=== PATIENT | male | born 1955 | race Caucasian/White ===

== ENCOUNTER 2016-08-08 13:38 | Observation (INO) | payer MEDICARE ==
[~2016-08-08] VITALS: Ht 182.9 cm; Wt 95.5 kg
[~2016-08-08 13:38] MED LIST: ALLER-CHLOR4 MG PO; ATIVAN1 MG PO; BENADRYL50 MG PO; DILANTIN100 MG PO; DOLOPHINE HCL10 MG PO; HYDROCODONE-APA1 TAB PO; MAXALT MLT10 MG/TAB PO; NEURONTIN600 MG PO; PHENOBARBITAL32.4 MG PO; PHENYTOIN100 MG/4 M PO; PROZAC40 MG PO; SOMA350 MG PO
[2016-08-08 19:08] LABS: BASOPHILS 0.2 % (0-2); EOSINOPHILS 2.4 % (0-7); HEMATOCRIT 42.3 % (42.0-54.0); HEMOGLOBIN 14.2 g/dL (13.5-17.5); IMMATURE GRANULOCYTES 0.2 % (0-5); LYMPHOCYTES 37.1 % (15-50); MCH 33.6 pg (26.0-34.0); MCHC 33.6 g/dL (31.0-37.0); MEAN PLATELET VOLUME 9.5 fL (7.4-10.4); MONOCYTES 7.1 % (2-11); PLATELET COUNT 222 10x3/uL (130-400); RBC 4.23 10x6/uL (4.20-6.10); RDW 13.9 % (11.5-14.5); WBC 8.3 10x3/uL (4.8-10.8)
[2016-08-08 19:18] LABS: APTT 30.3 SECONDS (22.8-39.4); INR 0.91 (0.85-1.17); PROTIME 12.1 SECONDS (11.6-15.0)
[2016-08-08 19:31] LABS: ALBUMIN 3.4 g/dL (3.4-5.0); ALKALINE PHOSPHATASE 108 U/L (46-116); ALT (SGPT) 26 U/L (10-68); CALC OSMOLALITY 276 mosm/kg (275-300); CALCIUM 8.7 mg/dL (8.5-10.1); CARBON DIOXIDE 30.5 mmol/L (21.0-32.0); CHLORIDE - SERUM 104 mmol/L (98-107); GLUCOSE 86 mg/dL (74-106); POTASSIUM - SERUM 4.3 mmol/L (3.5-5.1); PROTEIN - SERUM 6.6 g/dL (6.4-8.2); SODIUM 140 mmol/L (136-145); UREA NITROGEN 11 mg/dL (7-18); eGFR NON AFRICAN AMERICAN 81 mL/min (90-120)
--- NOTE | 2016-08-09 01:40 | NUR ---
CALLED CONSULT TO DR. MOSER
[2016-08-09 02:01] VITALS: BP 128/73; Ht 182.9 cm; Wt 95.5 kg
--- NOTE | 2016-08-09 02:50 | NUR ---
PATIENT RECEIVED TO ROOM FROM ER VIA WHEELCHAIR WITH HOSPITAL STAFF. AAOX4. RR EVEN AND UNLABORED. 0 S/S OF DISTRESS. IV TO RIGHT AC PATENT WITH NO REDNESS OR SWELLING. PATIENT STATED PAIN IS A 9/10 IN BACK AND NECK. NORCO GIVEN PER TELEPHONE ORDER FROM LAVERN LUCAS. ADMIT COMPLETE. ORIENTED PATIENT TO ROOM AND CALL LIGHT. NO OTHER NEEDS AT THIS TIME.
[2016-08-09 04:00] VITALS: BP 115/78
--- NOTE | 2016-08-09 05:48 | NUR ---
NORCO GIVEN FOR PAIN OF AN 8.
[2016-08-09 08:48] VITALS: BP 164/68
--- NOTE | 2016-08-09 12:00 | NUR ---
FLUSHED IV, IT PUFFED UP. D/C IV WITH CATHETER INTACT.
[2016-08-09 12:07] LABS: BASOPHILS 0.3 % (0-2); EOSINOPHILS 2.7 % (0-7); HEMATOCRIT 39.9 % (42.0-54.0); HEMOGLOBIN 13.4 g/dL (13.5-17.5); IMMATURE GRANULOCYTES 0.2 % (0-5); LYMPHOCYTES 37.1 % (15-50); MCH 33.3 pg (26.0-34.0); MCHC 33.6 g/dL (31.0-37.0); MCV 99.3 fL (80.0-100.0); MEAN PLATELET VOLUME 9.9 fL (7.4-10.4); MONOCYTES 6.3 % (2-11); NEUTROPHILS 53.4 % (40-80); PLATELET COUNT 226 10x3/uL (130-400); RBC 4.02 10x6/uL (4.20-6.10); RDW 13.9 % (11.5-14.5)
[2016-08-09 12:23] LABS: WBC 6.2 10x3/uL (4.8-10.8)
[2016-08-09 12:28] LABS: ANION GAP 9.7 mmol/L (8-16); BILIRUBIN - TOTAL 0.17 mg/dL (0.2-1.3); CALCIUM 8.3 mg/dL (8.5-10.1); CARBON DIOXIDE 29.2 mmol/L (21.0-32.0); CREATININE - SERUM 1.1 mg/dL (0.6-1.3); POTASSIUM - SERUM 3.9 mmol/L (3.5-5.1); PROTEIN - SERUM 6.3 g/dL (6.4-8.2)
[2016-08-09 12:35] VITALS: BP 101/60
--- NOTE | 2016-08-09 15:01 | NUR ---
IV ACCESS-20 GAUGE INSERTTED IN RIGHT FOREARM FOR ACCESS. CHRIS BOWERS RN
[2016-08-09 17:02] VITALS: BP 108/73; BP 108/773
--- NOTE | 2016-08-09 18:15 | NUR ---
D/C IV WITH CATHETER INTACT. DISCHARGE INSTRUCTIONS COMPLETED WITH PATIENT. PATIENT AND DENY NEEDS.
--- NOTE | 2016-08-09 18:30 | NUR ---
PATIENT LEFT VIA WHEELCHAIR.
== END 2016-08-09 18:37 | disposition home or self-care (01) ==
LOC: D.ER 13:38 → OBSVTIME 23:09 → D.MS 23:09
PROVIDERS: Emergency Medicine; ADMIT Family Medicine
DX: F10.239 Alcohol dependence with withdrawal, unspecified (principal); T51.0X1A Toxic effect of ethanol, accidental (unintentional), initial encounter; F12.10 Cannabis abuse, uncomplicated; F17.203 Nicotine dependence unspecified, with withdrawal; G40.909 Epilepsy, unspecified, not intractable, without status epilepticus; J44.9 Chronic obstructive pulmonary disease, unspecified; K21.9 Gastro-esophageal reflux disease without esophagitis; F41.9 Anxiety disorder, unspecified; F32.9 Major depressive disorder, single episode, unspecified; I25.10 Atherosclerotic heart disease of native coronary artery without angina pectoris; Z95.5 Presence of coronary angioplasty implant and graft

== ENCOUNTER 2017-08-21 12:13 | Emergency (ER) | payer MEDICARE ==
[~2017-08-21] VITALS: Ht 182.9 cm; Wt 90.9 kg
[2017-08-21 12:18] VITALS: Ht 182.9 cm; Wt 90.9 kg
[2017-08-21 12:46] LABS: BASOPHILS 0.2 % (0-2); EOSINOPHILS 1.2 % (0-7); HEMATOCRIT 41.4 % (42.0-54.0); HEMOGLOBIN 14.2 g/dL (13.5-17.5); IMMATURE GRANULOCYTES 0.1 % (0-5); MCH 33.1 pg (26.0-34.0); MCHC 34.3 g/dL (31.0-37.0); MCV 96.5 fL (80.0-100.0); MEAN PLATELET VOLUME 9.2 fL (7.4-10.4); MONOCYTES 8.3 % (2-11); NEUTROPHILS 57.2 % (40-80); PLATELET COUNT 263 10x3/uL (130-400); RBC 4.29 10x6/uL (4.20-6.10); RDW 14.1 % (11.5-14.5); WBC 8.6 10x3/uL (4.8-10.8)
[2017-08-21 12:58] LABS: INR 0.87 (0.85-1.17); PROTIME 11.4 SECONDS (11.6-15.0)
[2017-08-21 13:05] LABS: ALBUMIN 3.3 g/dL (3.4-5.0); ALKALINE PHOSPHATASE 138 U/L (46-116); ALT (SGPT) 25 U/L (10-68); AMYLASE - SERUM 27 U/L (25-115); CALC OSMOLALITY 278 mosm/kg (275-300); CALCIUM 8.8 mg/dL (8.5-10.1); CARBON DIOXIDE 24.9 mmol/L (21.0-32.0); CHLORIDE - SERUM 105 mmol/L (98-107); CREATININE - SERUM 0.9 mg/dL (0.6-1.3); GLUCOSE 86 mg/dL (74-106); LIPASE 162 U/L (73-393); POTASSIUM - SERUM 4.3 mmol/L (3.5-5.1); PROTEIN - SERUM 6.9 g/dL (6.4-8.2); SODIUM 140 mmol/L (136-145); UREA NITROGEN 14 mg/dL (7-18); eGFR NON AFRICAN AMERICAN > 90 mL/min (90-120)
[2017-08-21 14:51] LABS: APPEARANCE CLEAR (CLEAR); BILIRUBIN NEGATIVE (NEGATIVE); COLOR YELLOW (YELLOW); GLUCOSE NEGATIVE (NEGATIVE); KETONE NEGATIVE (NEGATIVE); NITRITE NEGATIVE (NEGATIVE); PROTEIN NEGATIVE (NEGATIVE); SPECIFIC GRAVITY 1.015 (1.005-1.020); UROBILINOGEN NORMAL (NORMAL)
[2017-08-21 14:53] LABS: RED CELLS - URINE 0-5 /hpf (0-5); WHITE CELLS - URINE OCC /hpf (0-5)
[2017-08-21 14:55] LABS: BACTERIA FEW /hpf (NONE SEEN)
[2017-08-21] MEDS ORDERED: CIPRO500 MG PO (18:44)
[2017-08-21] MEDS ORDERED: FLAGYL500 MG PO (18:44)
[2017-08-21 19:12] VITALS: BP 137/84
== END 2017-08-21 19:10 | disposition home or self-care (01) ==
LOC: D.ER 12:13
PROVIDERS: Family Medicine
DX: K57.90 Diverticulosis of intestine, part unspecified, without perforation or abscess without bleeding (principal); J44.9 Chronic obstructive pulmonary disease, unspecified; K21.9 Gastro-esophageal reflux disease without esophagitis; F17.200 Nicotine dependence, unspecified, uncomplicated

== ENCOUNTER 2018-07-31 12:16 | Inpatient (IN) | payer MEDICARE ==
[2018-07-31] VITALS (8 sets, daily range): BP systolic 109–138; BP diastolic 59–88; BMI 27.5
[~2018-07-31] VITALS: Ht 182.9 cm; Wt 92.5 kg
--- NOTE | ~2018-07-31 | ST ---
PATIENT:SHARON COPELAND MEDICAL RECORD: [id number] SEX: M LOCATION:D. D.211 ORDER #: ADMISSION DATE: 07/31/18 AGE OF PATIENT: 62 REFERRING PHYSICIAN: INTERPRETING PHYSICIAN: BHASKAR CANDELARIO MD DATE OF SERVICE: 08/03/2018 Lexiscan Nuclear Stress Test INDICATION: Chest pain. He was exercised on standard Lexiscan protocol with 30 mCi of sestamibi injected at peak stress and 12 mCi was used previously for rest images. FINDINGS: Gated SPECT reveals preserved ejection fraction at 66% with good wall motion and thickening and brightening throughout all segments. SPECT Imaging: Cardiolite was used as myocardial fusion agent. There is homogeneous uptake throughout all segments at rest and stress with no evidence of inducible ischemia or previous infarction. OVERALL IMPRESSION: 1. This is a normal nuclear stress test with no evidence of inducible ischemia or previous infarction. 2. Gated SPECT reveals a preserved ejection fraction at 66%. In this patient with ongoing symptomatology, the current scan does not suggest the presence of hemodynamically significant coronary artery disease. Evaluate noncardiac etiology of chest pain. TRANSINT:[id number] Voice Confirmation ID: [id number] DOCUMENT ID: [id number] BHASKAR CANDELARIO MD CC: [id number] DICTATION DATE: 08/03/18 1301 LEAD SHAREPOINT DEVELOPER: 08/04/18 0144 ADM IN [place] [place] [address]
[~2018-07-31 12:16] MED LIST changes: +CIPRO500 MG PO; +FLAGYL500 MG PO
[2018-07-31] MEDS ORDERED: ANORO ELLIPTA1 EACH INH (12:28)
[2018-07-31] MEDS ORDERED: ZANAFLEX4 MG PO (12:29)
[2018-07-31] MEDS ORDERED: ALBUTEROL SULF8.5 GM INH (12:29)
--- NOTE | 2018-07-31 12:45 | NUR ---
PT STATES THAT PAIN WAS 10/10 PRIOR TO FIRST SL NITRO, THEN DECREASED TO 9/10 PRIOR TO SECOND SL NITRO.
[2018-07-31 12:49] LABS: BASOPHILS 0.2 % (0-2); EOSINOPHILS 1.2 % (0-7); HEMATOCRIT 41.9 % (42.0-54.0); HEMOGLOBIN 14.7 g/dL (13.5-17.5); IMMATURE GRANULOCYTES 0.2 % (0-5); LYMPHOCYTES 29.3 % (15-50); MCH 33.6 pg (26.0-34.0); MCHC 35.1 g/dL (31.0-37.0); MCV 95.9 fL (80.0-100.0); MEAN PLATELET VOLUME 9.6 fL (7.4-10.4); MONOCYTES 6.7 % (2-11); NEUTROPHILS 62.4 % (40-80); PLATELET COUNT 266 10x3/uL (130-400); RBC 4.37 10x6/uL (4.20-6.10); RDW 14.1 % (11.5-14.5); WBC 8.4 10x3/uL (4.8-10.8)
--- NOTE | 2018-07-31 12:50 | NUR ---
PT STATES PAIN IS CURRENTLY 7/10 FOLLOWING SECOND PRN NITRO, NOT ADMINISTERING THIRD PRN NITRO D/T DIASTOLIC HYPOTENSION.
[2018-07-31 13:01] LABS: ALBUMIN 3.5 g/dL (3.4-5.0); ALKALINE PHOSPHATASE 116 U/L (46-116); ALT (SGPT) 23 U/L (10-68); BILIRUBIN - TOTAL 0.31 mg/dL (0.2-1.3); CALC OSMOLALITY 277 mosm/kg (275-300); CALCIUM 8.9 mg/dL (8.5-10.1); CARBON DIOXIDE 24.6 mmol/L (21.0-32.0); CHLORIDE - SERUM 104 mmol/L (98-107); CREATININE - SERUM 0.9 mg/dL (0.6-1.3); GLUCOSE 90 mg/dL (74-106); PROTEIN - SERUM 7.2 g/dL (6.4-8.2); SODIUM 139 mmol/L (136-145); UREA NITROGEN 13 mg/dL (7-18); eGFR NON AFRICAN AMERICAN > 90 mL/min (90-120)
[2018-07-31 13:03] LABS: APTT 31.3 SECONDS (22.8-39.4); INR 0.94 (0.85-1.17); PROTIME 12.1 SECONDS (11.6-15.0)
[2018-07-31 13:13] LABS: CKMB 0.7 U/L (0.0-3.6); CREATINE KINASE 60 UL (21-232); TROPONIN-I < 0.017 ng/mL (0.000-0.060)
--- NOTE | 2018-07-31 13:42 | NUR ---
UPON ARRIVAL PT PRESENTED WITH LABORED BREATHING. 02 APPLIED, DUE TO C/O SOB. PT CURRENTLY SITTING IN HIGH-ARREDONDO'S, NO SIGNS OF DISTRESS. RESPIRATIONS EVEN AND NONLABORED AT RATE OF 20 PER MINUTE. FAMILY AT THE BEDSIDE AND CALL LIGHT IN REACH. WILL CONTINUE TO MONITOR.
[2018-07-31] MEDS ORDERED: IBUPROFEN800 MG PO (15:30)
--- NOTE | 2018-07-31 15:30 | NUR ---
RECIVED FROM ER PER WC TO ROOM 2119. ADMIT ASSESSMENT PER RN
[2018-07-31 15:32] LABS: CKMB 0.7 U/L (0.0-3.6); CREATINE KINASE 64 UL (21-232)
[2018-07-31] MEDS ORDERED: PHENOBARBITAL30 MG PO (15:32)
[2018-07-31 15:34] LABS: TROPONIN-I < 0.017 ng/mL (0.000-0.060)
--- NOTE | 2018-07-31 16:59 | NUR ---
WITHOUT CHANGES OR DISTRESS NOTED AT THIS TIME. DENIES NEEDS.
[2018-07-31] MEDS ORDERED: DILANTIN100 MG PO (17:52)
--- NOTE | 2018-07-31 20:09 | NUR ---
RESUMING PATIENT CARE. PATIENT IS ALERT AND ORIENTED, RESTING COMFORTABLY IN BED. RESPIRATIONS ARE EVEN AND UNLABORED. NO S/S OF DISTRESS. NO C/O PAIN. NEEDS MET. CALL LIGHT WITHIN REACH. WILL CPOC.
[2018-07-31 21:36] LABS: CKMB 0.4 U/L (0.0-3.6); CREATINE KINASE 44 UL (21-232); TROPONIN-I < 0.017 ng/mL (0.000-0.060)
[2018-08-01 00:30] VITALS: BP 106/48
[2018-08-01 02:43] LABS: BASOPHILS 0.2 % (0-2); EOSINOPHILS 2.3 % (0-7); HEMATOCRIT 36.8 % (42.0-54.0); HEMOGLOBIN 12.6 g/dL (13.5-17.5); IMMATURE GRANULOCYTES 0.1 % (0-5); LYMPHOCYTES 27.6 % (15-50); MCH 33.1 pg (26.0-34.0); MCHC 34.2 g/dL (31.0-37.0); MCV 96.6 fL (80.0-100.0); NEUTROPHILS 62.8 % (40-80); RBC 3.81 10x6/uL (4.20-6.10); RDW 14.3 % (11.5-14.5); WBC 8.1 10x3/uL (4.8-10.8)
[2018-08-01 02:50] LABS: PLATELET COUNT 207 10x3/uL (130-400)
[2018-08-01 03:25] LABS: ALBUMIN 2.8 g/dL (3.4-5.0); ALKALINE PHOSPHATASE 95 U/L (46-116); ALT (SGPT) 21 U/L (10-68); BILIRUBIN - TOTAL 0.21 mg/dL (0.2-1.3); CALC OSMOLALITY 280 mosm/kg (275-300); CARBON DIOXIDE 27.1 mmol/L (21.0-32.0); CHLORIDE - SERUM 106 mmol/L (98-107); CKMB 0.5 U/L (0.0-3.6); CREATINE KINASE 38 UL (21-232); GLUCOSE 100 mg/dL (74-106); PROTEIN - SERUM 5.9 g/dL (6.4-8.2); SODIUM 140 mmol/L (136-145); TROPONIN-I < 0.017 ng/mL (0.000-0.060); eGFR NON AFRICAN AMERICAN 81 mL/min (90-120)
[2018-08-01 03:31] LABS: UREA NITROGEN 17 mg/dL (7-18)
[2018-08-01 04:30] VITALS: BP 112/58
--- NOTE | 2018-08-01 07:19 | NUR ---
PT UP AD SEPIDEH TO GET COFFEE. A/O X4, RESP EVEN AND NONLABORED ON RA. PT RATES PAIN LEVEL OF 5/10. LT FA IV SL, MONITOR SHOWING SR WITH RATE OF 66. PT DENIES ANY NEEDS AT THIS TIME. CALL LIGHT IN REACH, NAD NOTED, WILL CONTINUE PLAN OF CARE.
[2018-08-01 07:56] VITALS: BP 128/67
--- NOTE | 2018-08-01 11:19 | NUR ---
INFORMED PT SCARLETT WE NEED A URINE SAMPLE, PT ALREADY AWARE, COLLECTION CUP IN ROOM.
[2018-08-01 11:57] VITALS: BP 119/54
--- NOTE | 2018-08-01 13:42 | NUR ---
PT AT NURSES STATION GETTING COFFEE. C/O SOB AND CHEST PAIN, REYNALDO RN WALKED PT BACK TO ROOM. VITAL SIGNS FOLLOW BP OF 135/65, HR 76, RESP 22, O2 98% ON 2L. 1350- 1 NITRO GIVEN AT THIS TIME.
[2018-08-01 14:07] LABS: UDS - AMPHET NEGATIVE QUAL (NEGATIVE); UDS - BARB POSITIVE QUAL (NEGATIVE); UDS - BENZO NEGATIVE QUAL (NEGATIVE); UDS - COCAINE NEGATIVE QUAL (NEGATIVE); UDS - OPIATE NEGATIVE QUAL (NEGATIVE); UDS - PCP NEGATIVE QUAL (NEGATIVE); UDS - THC NEGATIVE QUAL (NEGATIVE)
--- NOTE | 2018-08-01 14:25 | NUR ---
PT STILL C/O OF CHEST PAIN 8/10 PAIN LEVEL EVEN AFTER 3 DOSES OF NITRO. GAVE NORCO AT THIS TIME. PT DENIES ANY OTHER NEEDS AT THIS TIME. CALL LIGHT IN REACH, NAD NOTED, WILL CONTINUE TO MONITOR.
[2018-08-01 16:33] VITALS: BP 120/51
--- NOTE | 2018-08-01 18:35 | NUR ---
GAVE NORCO FOR PAIN LEVEL OF 7/10. PT DENIES ANY OTHER NEEDS AT THIS TIME. CALL LIGHT IN REACH, NAD NOTED.
--- NOTE | 2018-08-01 19:26 | NUR ---
RESUMING PATIENT CARE. PATIENT IS ALERT AND ORIENTED, WALKING AROUND ROOM TALKING ON PHONE. PATIENT RESPIRATIONS ARE EVEN AND UNLABORED. NO S/S OF DISTRESS. NO C/O PAIN. CALL LIGHT WITHIN REACH. WILL CPOC
[2018-08-01 20:00] VITALS: BP 116/56
--- NOTE | 2018-08-01 23:00 | NUR ---
PATIENT RESTING COMDFORTABLY IN BED. RESPIRATIONS ARE EVEN AND UNLABORED. NO S/S OF DISTRESS. NO C/O PAIN. DENIES NEEDS AT THIS TIME. CALL LIGHT WITHIN REACH. WILL CPOC.
[2018-08-02] VITALS: BP 126/63
[2018-08-02 04:00] VITALS: BP 122/60
--- NOTE | 2018-08-02 04:19 | NUR ---
PATIENT UP WALKING AROUND. THERMOSTATIC CONTROLS SUPERVISOR INFORMED ME THAT THE PATIENT HAD COVERTED TO CONTROLLED AFIB HR 85. PATIENT BACK IN FROM SITTING ON BED. WILL DO EKG AND NOTIFY .
--- NOTE | 2018-08-02 04:56 | NUR ---
INFORMED BY POST ADOPTION COORDINATOR THAT PATIENT HAD CONVERTED TO CONTROLLED AFIB HR 85. PATIENT IS WALKING AROUND IN THE HALLWAY. PATIENT HAS NO C/O CHEST PAIN OR PRESSURE.
[2018-08-02 08:38] VITALS: BP 121/68
--- NOTE | 2018-08-02 10:50 | NUR ---
UP AMBULATING HALLWAY WITH FAMILY. GAIT STEADY.
[2018-08-02 11:39] VITALS: BP 116/62
--- NOTE | 2018-08-02 14:39 | NUR ---
TELEMETRY CAF. RESTS IN BED WITH EYES CLOSED. CALL LIGHT IN REACH. WILL CONT. PLAN OF CARE.
[2018-08-02 15:55] VITALS: BP 118/78
--- NOTE | 2018-08-02 19:20 | NUR ---
TILER'S ASSISTANT REPORTED THAT PATIENT HAD A 6 SECOND PAUSE. PATIENT HAD A SECOND PAUSE OF 7.4. PATIENT BP 113/72. HR 84. O2 98 ON 2L. PATIENT C/O CHEST PRESSURE PATIENT ASSESSED AND EKG OBTAINED EKG PATIENT REMAINS IN AFIB. STAT PAGE TO DR. CANDELARIO. ORDERS GIVEN TO DISCONTINUE SOTALOL AND TO CALL AGAIN IF PATIENT BECOMES SYMPTOMATIC.
[2018-08-02 20:00] VITALS: BP 113/72
--- NOTE | 2018-08-02 21:07 | NUR ---
PT UP WALKING AROUND WITH SPOUSE. EDUCATED PT TO REST DUE TO PAUSES EARLIER IN SHIFT, AND ACCURATE MONITORING. ASKED PT TO STAY ON UNIT TO KEEP ACCURATE READING OF TELEMETRY. PT VERBALIZED UNDERSTANDING. WILL CPOC
--- NOTE | 2018-08-02 21:11 | NUR ---
PT BACK INTO ROOM AFTER ONE LAP AROUND UNIT. NO S/S OF DISTRESS. PT IS 69 SR ON THE MONITOR. WILL CPOC
--- NOTE | 2018-08-02 21:15 | NUR ---
PT THAN CAME OUT TO WHEEL CHAIR WITH SPOUSE AND HAD SPOUSE PUSH HIM OUT TO ER TO SMOKE A CIGG. TOLD PT THE MONITOR DOES NOT READ OUTSIDE AND EDUCATED IN RISK ASSOCIATED WITH HEART AND HEART PAUSES. PT VERBALIZED UNDERSTANDING, BUT STILL WENT OUTSIDE WITH . WILL CPOC
[2018-08-03 00:30] VITALS: BP 127/67
[2018-08-03 04:59] LABS: BASOPHILS 0.3 % (0-2); EOSINOPHILS 3.8 % (0-7); HEMATOCRIT 36.9 % (42.0-54.0); HEMOGLOBIN 12.3 g/dL (13.5-17.5); IMMATURE GRANULOCYTES 0.3 % (0-5); LYMPHOCYTES 28.2 % (15-50); MCH 33.1 pg (26.0-34.0); MCHC 33.3 g/dL (31.0-37.0); MCV 99.2 fL (80.0-100.0); MEAN PLATELET VOLUME 9.6 fL (7.4-10.4); MONOCYTES 7.4 % (2-11); PLATELET COUNT 202 10x3/uL (130-400); RBC 3.72 10x6/uL (4.20-6.10); RDW 14.6 % (11.5-14.5); WBC 7.1 10x3/uL (4.8-10.8)
[2018-08-03 05:10] LABS: ALBUMIN 2.8 g/dL (3.4-5.0); ALKALINE PHOSPHATASE 101 U/L (46-116); ALT (SGPT) 22 U/L (10-68); BILIRUBIN - TOTAL 0.17 mg/dL (0.2-1.3); CALC OSMOLALITY 282 mosm/kg (275-300); CALCIUM 8.8 mg/dL (8.5-10.1); CARBON DIOXIDE 28.6 mmol/L (21.0-32.0); CHLORIDE - SERUM 106 mmol/L (98-107); GLUCOSE 103 mg/dL (74-106); POTASSIUM - SERUM 4.4 mmol/L (3.5-5.1); SODIUM 141 mmol/L (136-145); UREA NITROGEN 18 mg/dL (7-18); eGFR NON AFRICAN AMERICAN 81 mL/min (90-120)
[2018-08-03 05:30] VITALS: BP 121/62
--- NOTE | 2018-08-03 07:00 | NUR ---
AM ROUNDS COMPLETED. INTRODUCED MYSELF TO PT PRIMARY RN FOR TODAYS SHIFT. PT IS A&O RESTING QUIETLY IN BED. NO IMMEDIATE NEEDS AT THIS TIME. WILL CHECK CHART ORDERS AND LABS AND CPOC. CL IN REACH, BED IN LOWEST, SIDE RAILS X2. WILL CPOC.
[2018-08-03 08:02] VITALS: BP 129/82
--- NOTE | 2018-08-03 08:10 | NUR ---
PT LEAVING FOR NM STRESS TEST PART 1 AT THIS TIME.
--- NOTE | 2018-08-03 09:42 | NUR ---
PT REMAINS NPO HOWEVER GAVE MORNING MEDICATIONS WITH ICE WATER. PROVIDED PT WITH PRN NORCO FOR CHRONIC PAIN. PT VOICED THANKS AND IS RESTING QUIETLY IN BED. DENIES ANY CURRENT NEEDS. WILL CTM.
--- NOTE | 2018-08-03 11:28 | CN ---
PATIENT NAME:SHARON COPELAND MEDICAL RECORD: [id number] : 59 LOCATION:. D.2119 ADMIT DATE: 07/31/18 ACCOUNT: [id number] CONSULTING PHYSICIAN: BHASKAR CANDELARIO MD REFERRING PHYSICIAN: MARISA RIVAS MD DATE OF CONSULTATION: 08/02/2018 DIAGNOSES: 1. Chest pain compatible with angina. 2. Pneumonia. 3. Tobacco use. 4. COPD. 5. Paroxysmal atrial fibrillation. HISTORY OF PRESENT ILLNESS: This is a gentleman who presents with community-acquired pneumonia and chest pain. He has been going in and out of atrial fibrillation since being here. He does not feel the atrial fibrillation. As best he knows, he has no past history of atrial fibrillation. Currently, he is in atrial fibrillation with controlled ventricular response in the 80s. PHYSICAL EXAMINATION: GENERAL APPEARANCE: Well-nourished, well-developed, appears stated age. Level of distress, comfortable. PSYCHIATRIC: Mental status, alert, normal affect. Orientation, oriented to time, place and person. EYES: Lids and conjunctiva, noninjected. No discharge, no pallor. ENT: Lips, teeth, gums, normal dentition. Oropharynx, no cyanosis, no pallor. NECK: Carotid arteries, bilateral normal upstroke, no bruits, no thrills. JUGULAR VEINS: No jugular venous pressure or distention. CERVICAL LYMPH NODES: Nontender, nonenlarged. THYROID: Not enlarged. Nontender. No nodules. LUNGS: Respiratory effort, unlabored. CHEST: Normal curvature. No thoracic deformity. No chest wall tenderness. Percussion, resonant. Auscultation, clear. No wheezes, no rales, no rhonchi. CARDIOVASCULAR: Precordial exam, nondisplaced. No heaves or pericardial thrills. Irregularly irregular. Heart sounds, normal S1, normal S2. No S3, no gallop, no rub. Systolic murmur, not heard. Diastolic murmur, not heard. EXTREMITIES: No cyanosis, no edema. Peripheral pulses, full and equal in all extremities, except as noted. No bruits appreciated. ABDOMEN: Soft, nondistended. Normal aorta. No bruit. Nontender. No masses. Liver, nontender, no hepatomegaly. Spleen, nontender, no splenomegaly. MUSCULOSKELETAL: No joint tenderness. No joint swelling. No erythema. NEUROLOGICAL: Normal gait, normal strength, normal tone. SKIN: Warm and dry. OVERALL IMPRESSION: Atrial fibrillation. We will start him on sotalol 80 mg b.i.d. and get an echocardiogram. Due to the chest pain, we will risk stratify with Lexiscan Cardiolite in the a.m. TRANSINT:[id number] Voice Confirmation ID: [id number] DOCUMENT ID: [id number] CONSULT REPORT [id number] SHARON COPELAND, BHASKAR DANIELSON at 1128 CC: [id number] DICTATION DATE: 08/02/18 1250 PARKING LOT SPOTTER: 08/02/18 1449 ADM IN [id number] [place] [address]
--- NOTE | 2018-08-03 11:28 | EC ---
PATIENT:SHARON COPELAND DATE OF SERVICE: 07/31/18 SEX: M MEDICAL RECORD: [id number] DATE OF : [birth year] LOCATION:D.M2 D.211 AGE OF PATIENT: 62 ADMISSION DATE: 07/31/18 REFERRING PHYSICIAN: INTERPRETING PHYSICIAN: BHASKAR JOEL MD ECHOCARDIOGRAM REPORT ECHO CHARGES 5 ECHO LIMITED Date: 08/02/18 CLINICAL DIAGNOSIS: CHEST PAIN, AFIB ECHOCARDIOGRAPHIC MEASUREMENTS (adult normal given) AC root (d.<3.7cm) cm LV Septum d (<1.2 cm> cm Valve Excursion cm LV Septum (systole) cm Left Atria (s.<4.0cm> 3.8 cm LVPW d(<1.2cm) cm RV (d.<2.3cm) 4.3 cm LVPW (sytole) cm LV diastole(<5.6CM) 5.1 cm MV E-F(>70mm/sec) cm LV systole 3.8 cm LVOT Diameter 1.9 cm MV exc.(>10mm) cm Est.ejection fraction (50-75%) % DOPPLER: LVIT cm/sec A 53.0 cm/sec E 82.0 cm/sec LA cm/sec RVSP 18 mmHg LVOT 126 cm/sec AOP1/2T m/s Asc. Ao 174 cm/sec RVOT cm/sec RA cm/sec PA cm/sec AV Gradient Peak 12.13mmHg AV Mean 7.11 mmHg AV Area 2.0 cm MV Gradient Peak 4.23 mmHg MV Mean 1.10 mmHg MV Area cm COMMENTS: Telegraph Office Telephone Clerk: Nestor RODRIGUEZ Hole Digger Operator: 1 Dr. Joel TAPE# PACS Pericardial Effusion N DATE OF SERVICE: 08/01/2018 PROCEDURE: Echocardiogram. FINDINGS: 1. Left ventricular chamber size is within normal limits. Left ventricular systolic function is normal. Overall ejection fraction estimated at 55%. 2. Left atrium, right atrium, and right ventricular chamber sizes are within normal limits. 3. Valvular structures have normal structure and motion. ECHOCARDIOGRAM REPORT [id number] SHARON COPELAND 4. Doppler interrogation reveals trace mitral regurgitation, no other valvular insufficiency or stenosis. Pulmonary systolic pressure is normal estimated at 18 mmHg. 5. The patient is in and out of atrial fibrillation during the study. TRANSINT:[id number] Voice Confirmation ID: [id number] DOCUMENT ID: [id number] BHASKAR JOEL MD at 1128 CC: [id number] DICTATION DATE: 08/02/18 1527 CREMATORIUM OPERATOR: 08/02/18 1616 ADM IN [place] [address] [place] [id number]
--- NOTE | 2018-08-03 12:09 | NUR ---
PT BACK FROM LAST PORTION OF HIS NUCLEAR MED SCAN. RECONNECTED PT TO HIS IV ANBX TO FINISH TRANSFUSING. PT DENIES ANY CURRENT PAIN OR NEEDS AT THIS TIME. PT IS C/O BEING HUNGRY. NO NEW DIET ORDERS. PT WAITING TO BE SEEN BY . WILL CTM.
--- NOTE | 2018-08-03 12:32 | MORECARE ---
CASE MANAGEMENT DISCHARGE SUMMARY PATIENT: SHARON COPELAND UNIT: [id number] ADM DATE: 07/31/18 AGE: 62 : 59 SEX: M ROOM/BED: D.4479 AUTHOR: ISAIDOC PHYSICIAN: REFERRING PHYSICIAN: MARISA RIVAS MD DATE OF SERVICE: 08/03/18 Discharge Plan Patient Name: SHARON COPELAND Facility: [facility]:[place] : 1955 Planned Disposition: Home Anticipated Discharge Date: Discharge Date: Expected LOS: Initial Reviewer: [id number] Initial Review Date: 08/03/2018 Generated: 08/03/18 1:32 pm Comments DCP- Discharge Planning Updated by [email or web address]: Davon Lozada on 08/03/18 11:[address] Patient Name: SHARON COPELAND Admission Status: Elective Accout number: [id number] Admission Date: 07-31-2018 : 1955 Admission Diagnosis:CHEST PAIN, UNSPECIFIED Attending: MARISA RIVAS Current LOS: 3 Anticipated DC Date: Planned Disposition: Home Primary Insurance: MEDICARE A & B Discharge Planning Comments: CM MET WITH PT AND SPOUSE IN ROOM TO DISCUSS DISCHARGE PLANNING AND NEEDS. SHARON COPELAND provided verbal consent to discuss current and ongoing needs with/in the presence of: SPOUSE, RAGHU. PT REPORTS LIVING AT HOME INDEPENDENTLY WITH HIS . PT HAS NO MEDICAL EQUIPMENT AND NO OUTSIDE SERVICES ASSISTING IN THE HOME. CM DISCUSSED AVAILABILITY OF HOME HEALTH, REHAB SERVICES AND MEDICAL EQUIPMENT. PT DOES NOT ANTICIPATE ANY DISCHARGE NEEDS. PT'S SPOUSE WILL PICK PT UP FOR DISCHARGE HOME. PT PLANS TO DISCHARGE HOME WITH SPOUSE, HAS NOT ANTICIPATED DISCHARGE NEEDS AT THIS TIME. FAMILY TO TRANSPORT HOME AT DISCHARGE. CM TO FOLLOW AND ASSIST IF NEEDED. Home Appliances Mechanic: Davon Lozada DCPIA - Discharge Planning Initial Assessment Updated by [email or web address]: Davon Lozada on 08/03/18 12:29 pm * Is the patient Alert and Oriented? Yes * How many steps to enter\exit or inside your home? RAMP * PCP STUART BOYD APN * Pharmacy [facility] [address] * Preadmission Environment Home with Family * ADLs Independent * Equipment None * Other Equipment NO MEDICAL EQUIPMENT PROVIDER PREFERENCE * List name and contact numbers for known caregivers / representatives who currently or will assist patient after discharge: RAGHU COPELAND, SPOUSE, * Verbal permission to speak to the caregivers and representatives has been obtained from the patient. Yes * Community resources currently utilized None * Please name any agencies selected above. NONE * Additional services required to return to the preadmission environment? No * Can the patient safely return to the preadmission environment? Yes * Has this patient been hospitalized within the prior 30 days at any hospital? No Patient Name: SHARON COPELAND Page [id number] at 1232 All edits/amendments must be made on the electronic document DICTATION DATE: 08/03/18 1231 KENNEL ASSISTANT: MIGUEL 08/03/18 1231 RPT#: [id number] MS DATE: STATUS: ADM IN [facility] [address] [place] [address] END OF REPORT
--- NOTE | 2018-08-03 13:23 | NUR ---
PT C/O TENSION PAIN IN HIS NECK/BACK REQUESTED AND PROVIDED WITH PRN NORCO FOR HIS CHRONIC PAIN. PT REMAINS NPO WAITING PATIENTLY TO FIND OUT THE PLAN. PT DENIES ANY FURTHER NEEDS AT THIS TIME. WILL CPOC.
--- NOTE | 2018-08-03 14:14 | NUR ---
PT LEAVING FOR CHEST XRAY. JUST ROUNDED FOR NEW CONSULT AND DISCUSSED PLAN OF CARE AND DISEASE PROCESS WITH PT. PT VERBALIZED UNDERSTANDING AND DENIES ANY QUESTIONS OR CONCERNS. FAMILY AT BEDSIDE. WILL CTM.
--- NOTE | 2018-08-03 15:22 | NUR ---
PT ATE 100% OF HIS FOOD NOW THAT HE IS NO LONGER NPO. PT VOICED THANKS AND IS RESTING QUIETLY IN BED. DENIES ANY CURRENT PAIN OR NEEDS AT THIS TIME. CL IN REACH, BED IN LOWEST, SIDE RAILS X2. WILL CTM.
--- NOTE | 2018-08-03 17:52 | NUR ---
PT STATES DINNER WAS TOO SMALL OF AN AMOUNT REQUESTING MORE FOOD. NEW DIET MESSAGE PLACED, WILL WAIT ON THEM TO BRING. PT VOICED THANKS AND DENIES ANY FURTHER NEEDS AT THIS TIME.
[2018-08-03 20:00] VITALS: BP 122/74
--- NOTE | 2018-08-03 20:00 | NUR ---
INITIAL ROUNDS AND ASSESSMENT COMPLETED. PT ALERT/ORIENTED AND AMBULATORY. SR 60'S PER TELEMETRY. MONITOR AND CPOC.
--- NOTE | 2018-08-03 22:58 | NUR ---
AMBULATORY. WATCHING TV. MONITOR AND CPOC.
--- NOTE | 2018-08-04 00:28 | NUR ---
C/O NECK PAIN. MEDICATED WITH NORCO AND ZANAFLEX. MONITOR AND CPOC.
[2018-08-04 00:30] VITALS: BP 138/63
[2018-08-04 04:30] VITALS: BP 122/77
[2018-08-04 06:46] LABS: BASOPHILS 0.5 % (0-2); EOSINOPHILS 3.4 % (0-7); HEMATOCRIT 38.8 % (42.0-54.0); HEMOGLOBIN 13.1 g/dL (13.5-17.5); IMMATURE GRANULOCYTES 0.4 % (0-5); LYMPHOCYTES 29.9 % (15-50); MCH 33.2 pg (26.0-34.0); MCHC 33.8 g/dL (31.0-37.0); MCV 98.2 fL (80.0-100.0); MEAN PLATELET VOLUME 10.3 fL (7.4-10.4); MONOCYTES 8.2 % (2-11); NEUTROPHILS 57.6 % (40-80); RBC 3.95 10x6/uL (4.20-6.10); RDW 14.3 % (11.5-14.5); WBC 8.2 10x3/uL (4.8-10.8)
--- NOTE | 2018-08-04 07:15 | NUR ---
ASSESSMENT COMPLETED. ALERT AND ORIENTED.UP AB SEPIDEH.TELEMERTY SOWS SR 62. UP WALKING. DENIES ANY NEEDS AT PRESENT TIME. WILL MONITOR
[2018-08-04 07:19] LABS: ALBUMIN 2.9 g/dL (3.4-5.0); ALKALINE PHOSPHATASE 97 U/L (46-116); CALC OSMOLALITY 280 mosm/kg (275-300); CALCIUM 8.5 mg/dL (8.5-10.1); CARBON DIOXIDE 26.7 mmol/L (21.0-32.0); CHLORIDE - SERUM 105 mmol/L (98-107); CREATININE - SERUM 0.9 mg/dL (0.6-1.3); GLUCOSE 90 mg/dL (74-106); POTASSIUM - SERUM 4.4 mmol/L (3.5-5.1); PROTEIN - SERUM 6.3 g/dL (6.4-8.2); SODIUM 140 mmol/L (136-145); UREA NITROGEN 17 mg/dL (7-18); eGFR NON AFRICAN AMERICAN > 90 mL/min (90-120)
[2018-08-04 07:20] LABS: ALT (SGPT) 32 U/L (10-68)
[2018-08-04 07:22] LABS: PLATELET COUNT 245 10x3/uL (130-400)
[2018-08-04 09:33] VITALS: BP 125/67
[2018-08-04 10:31] VITALS: Ht 182.9 cm; Wt 92.5 kg
--- NOTE | 2018-08-04 12:47 | NUR ---
I have reviewed this patient and I concur with the Shift Assessment completed by the Licensed Practical Nurse today this shift.
[2018-08-04 13:00] VITALS: BP 112/58
[2018-08-04] MEDS ORDERED: MUCINEX600 MG PO (15:37)
[2018-08-04] MEDS ORDERED: OMNICEF300 MG PO (15:40)
[2018-08-04] MEDS ORDERED: ZITHROMAX500 MG PO (15:40)
--- NOTE | 2018-08-04 18:06 | NUR ---
PT DISCHARGED. IV DCD, TO PRIVATE CAR PER WHEEL CHAIR
--- NOTE | 2018-08-06 09:42 | MORECARE ---
CASE MANAGEMENT DISCHARGE SUMMARY PATIENT: SHARON COPELAND UNIT: [id number] ADM DATE: 07/31/18 AGE: 62 : 59 SEX: M ROOM/BED: D.0394 AUTHOR: ISAIDOC PHYSICIAN: REFERRING PHYSICIAN: MARISA RIVAS MD DATE OF SERVICE: 08/06/18 Discharge Plan Patient Name: SHARON COPELAND Facility: [facility]:[place] : 1955 Planned Disposition: Home Anticipated Discharge Date: 08/04/18 Discharge Date: 08/04/2018 Expected LOS: 4 Initial Reviewer: [email or web address] Initial Review Date: 08/03/2018 Generated: 08/06/18 10:42 am Comments DCP- Discharge Planning Updated by [email or web address]: Davon Lozada on 08/03/18 11:[address] Patient Name: SHARON COPELAND Admission Status: Elective Accout number: [id number] Admission Date: 07-31-2018 : 1955 Admission Diagnosis:CHEST PAIN, UNSPECIFIED Attending: MARISA RIVAS Current LOS: 3 Anticipated DC Date: Planned Disposition: Home Primary Insurance: MEDICARE A & B Discharge Planning Comments: CM MET WITH PT AND SPOUSE IN ROOM TO DISCUSS DISCHARGE PLANNING AND NEEDS. SHARON COPELAND provided verbal consent to discuss current and ongoing needs with/in the presence of: SPOUSE, RAGHU. PT REPORTS LIVING AT HOME INDEPENDENTLY WITH HIS . PT HAS NO MEDICAL EQUIPMENT AND NO OUTSIDE SERVICES ASSISTING IN THE HOME. CM DISCUSSED AVAILABILITY OF HOME HEALTH, REHAB SERVICES AND MEDICAL EQUIPMENT. PT DOES NOT ANTICIPATE ANY DISCHARGE NEEDS. PT'S SPOUSE WILL PICK PT UP FOR DISCHARGE HOME. PT PLANS TO DISCHARGE HOME WITH SPOUSE, HAS NOT ANTICIPATED DISCHARGE NEEDS AT THIS TIME. FAMILY TO TRANSPORT HOME AT DISCHARGE. CM TO FOLLOW AND ASSIST IF NEEDED. Fan Mail Clerk: Davon Lozada DCPIA - Discharge Planning Initial Assessment Updated by [id number]: Davon Lozada on 08/03/18 12:29 pm * Is the patient Alert and Oriented? Yes * How many steps to enter\exit or inside your home? RAMP * PCP STUART BOYD APN * Pharmacy [facility] [address] * Preadmission Environment Home with Family * ADLs Independent * Equipment None * Other Equipment NO MEDICAL EQUIPMENT PROVIDER PREFERENCE * List name and contact numbers for known caregivers / representatives who currently or will assist patient after discharge: RAGHU COPELAND, SPOUSE, * Verbal permission to speak to the caregivers and representatives has been obtained from the patient. Yes * Community resources currently utilized None * Please name any agencies selected above. NONE * Additional services required to return to the preadmission environment? No * Can the patient safely return to the preadmission environment? Yes * Has this patient been hospitalized within the prior 30 days at any hospital? No Last DP export: 08/03/18 11:32 a Patient Name: SHARON COPELAND Page [id number] at 0942 All edits/amendments must be made on the electronic document DICTATION DATE: 08/06/18940 CREDIT RISK MANAGEMENT DIRECTOR: MIGUEL 08/06/18940 RPT#: [id number] DC DATE:08/04/18 STATUS: DIS IN [facility] [address] [place] [address] END OF REPORT
== END 2018-08-04 18:08 | disposition home or self-care (01) | DRG 308 ==
LOC: D.ER 12:16 → D.M2 14:54
PROVIDERS: Family Medicine; ADMIT Emergency Medicine; ATTEND Emergency Medicine
DX: I48.0 Paroxysmal atrial fibrillation (principal); J18.9 Pneumonia, unspecified organism; I25.110 Atherosclerotic heart disease of native coronary artery with unstable angina pectoris; F17.213 Nicotine dependence, cigarettes, with withdrawal; G89.29 Other chronic pain; M54.9 Dorsalgia, unspecified; M54.2 Cervicalgia; F41.9 Anxiety disorder, unspecified; F32.9 Major depressive disorder, single episode, unspecified; G40.909 Epilepsy, unspecified, not intractable, without status epilepticus; F12.90 Cannabis use, unspecified, uncomplicated

== ENCOUNTER 2018-08-30 10:51 | Outpatient (CLI) | payer MEDICARE ==
[~2018-08-30] VITALS: Ht 182.9 cm; Wt 93.2 kg
--- NOTE | ~2018-08-30 | OP ---
PATIENT NAME: SHARON COPELAND MEDICAL RECORD: [id number] :[birth year] LOCATION:D. D.6 ADMISSION DATE: SURGEON: TITUS KEATING MD DATE OF OPERATION: 08/30/2018 PREOPERATIVE DIAGNOSES: 1. Bradycardia. 2. COPD. 3. Coronary artery disease with history of AL. POSTOPERATIVE DIAGNOSES: 1. Bradycardia. 2. COPD. 3. Coronary artery disease with history of AL. PROCEDURES: 1. Left subclavian vein dual lead pacemaker placement. 2. Fluoroscopic interpretation. SURGEON: Titus Keating MD CO-SURGEON: Tahir Ray MD REPORT OF OPERATION: The patient's left chest was prepped and draped in sterile fashion. A 25 mL of 1% lidocaine with epinephrine was infused into the surrounding tissues. A transverse incision was made on the left superolateral chest and a subcutaneous pouch was made over the pectoral fascia. [place] were used to cannulate the left subclavian vein times 2 and guidewires were advanced with ease. Fluoro was used to note that the wires were in good position in the venous system. Dilator trocar devices were then placed over the wires and the wires and dilators were removed. The leads were advanced through the trocars. Once they were noted to be in good position, then Dr. Ray positioned the leads appropriately in the atrium and ventricle. We made sure that the leads were functioning appropriately and then these were sutured into place with #0 Ti-Cron. The leads were affixed to the pacemaker, which was placed into the subcutaneous pouch and sutured to the pectoral fascia using a single interrupted #0 Ti-Cron. We irrigated out the wound bed with antibiotic solution. The subcutaneous tissues were reapproximated with interrupted 3-0 Vicryl and the skin was closed with running subcutaneous 5-0 Monocryl. COMPLICATIONS: None. CONDITION: Stable. ANESTHESIA: Local MAC. BLOOD LOSS: Minimal. TRANSINT:[id number] Voice Confirmation ID: [id number] DOCUMENT ID: [id number] OPERATIVE REPORT [id number] SHARON COPELAND TITUS KEATING MD CC: [id number] DICTATION DATE: 08/30/18 1407 RETORT FIREMAN: 08/30/18 [address] [place] [address]
--- NOTE | ~2018-08-30 | HEMODYNAMI ---
PATIENT:SHARON COPELAND MEDICAL RECORD: [id number] : 59 LOCATION:[facility] ADMISSION DATE: 08/30/18 Generatedon:08/30/201813:34 Patient name: SHARON COPELAND Patient #: [id number] SSN: : 1955 Date of study: 08/30/2018 Page: Of Hemodynamic Procedure Report Patient Data Patient Demographics Procedure consent was obtained First Name: SHARON Gender: Male Last Name: DINORAH : 1955 Middle Initial: M Age: 62 year(s) Patient #: [id number] Race: Unknown Additional ID: [id number] Contact details Address: [address] [place] [address] [address] State: [place] City: [place] Zip code: [address] Admission Admission Data Admission Date: 08/30/2018 Admission Time: 10:51 Procedure Procedure Types Cath Procedure Diagnostic Procedure PPM/ICD PPM Dual Implant Procedure Description Procedure Date Procedure Date: 08/30/2018 Procedure Start Time: 12:55 Procedure End Time: 13:32 Procedure Staff Name Function Tahir Arce MD Performing Physician Mark Schultz MD Assisting physician Tyree Jones RT Monitor Sabine Voss RN Nurse Parish Reece RT Scrub Procedure Data Cath Procedure Fluoroscopy Diagnostic fluoroscopy Total fluoroscopy Time: 7.1 time: 7.1 min min Diagnostic fluoroscopy Total fluoroscopy dose: 289 dose: 289 mGy mGy Estimated blood loss: 5 ml Procedure Complications No complications Procedure Medications Medication Administration Route Dosage 0.9% NaCl I.V. 100 ml/hr Oxygen etCO2 Nasal cannula 2 l/min Lidocaine 1% added to field 20 Ancef (1Gm/50ml NS) I.V.P.B 1 g Ancef Irrigation Topical 1 g (1gm/500ml NS) Zofran I.V. 4 mg Versed I.V. 2 mg Dilaudid I.V. 1 mg Versed I.V. 2 mg Dilaudid I.V. 1 mg Versed I.V. 2 mg Dilaudid I.V. 2 mg Versed I.V. 2 mg Hemodynamics Rest Heart Rate: 60 (bpm) Snapshots Pre Cath Intra NCS Post Cath Vital Signs Time Heart Resp SPO2 etCO2 NIBP (mmHg) Rhythm Pain Sedation Rate (ipm) (%) (mmHg) Status Level (bpm) 12:41:52 51 15 99 0 Measuring SB 0 (11) 10(A) , No pain 12:50:09 59 22 100 0 Out of SB 0 (11) 10(A) range , No pain 12:51:47 56 12 100 0 167/81(134) SB 0 (11) 10(A) , No pain 12:56:07 54 14 100 0 126/64(82) SB 0 (11) 10(A) , No pain 13:00:19 57 14 99 0 128/69(102) SB 0 (11) 10(A) , No pain 13:04:33 58 17 98 0 126/65(107) SB 0 (11) 10(A) , No pain 13:08:47 56 14 99 0 135/72(114) SB 0 (11) 10(A) , No pain 13:13:04 58 14 99 0 134/76(105) SB 0 (11) 10(A) , No pain 13:17:19 54 16 100 0 139/74(116) SB 0 (11) 10(A) , No pain 13:21:33 59 18 100 0 141/83(116) Paced 0 (11) 10(A) , No pain 13:25:47 60 16 100 0 150/83(122) Paced 0 (11) 10(A) , No pain 13:30:01 60 18 100 0 163/81(99) Paced 0 (11) 10(A) , No pain Medications Time Medication Route Dose Verified Delivered Reason Notes Effectiv eness by by 12:51:10 0.9% NaCl I.V. 100 Tahir Sabine used for ml/hr ClaudeCharan Voss procedure MD ANDERSON 12:51:18 Oxygen etCO2 2 Tahir Sabine used for Nasal l/min ClaudeCharan Voss procedure cannula MD ANDERSON 12:51:30 Lidocaine added 20ml Tahir Flores for local 1% to vial St Charan Schultz MD anesthetic field 12:51:42 Ancef I.V.P.B 1 g Tahir Sabine Per (1Gm/50ml St Charan Voss physician NS) RN 12:51:52 Ancef Topical 1 g Tahir Episcopalian used for Irrigation St Charan Schultz MD procedure (1gm/500ml MD LAWS) 12:52:05 Zofran I.V. 4 mg Tahir Sabine for nausea St Charan Voss MD RN 12:54:42 Versed I.V. 2 mg Tahir Sabine for St Charan Voss sedation RN 12:54:54 Dilaudid I.V. 1 mg Tahir Sabine for St Charan romo MD RN 12:59:45 Versed I.V. 2 mg Tahir Sabine for St Charan romo MD RN 12:59:49 Dilaudid I.V. 1 mg Tahir Sabine for [facility] Charan romo MD RN 13:04:06 Versed I.V. 2 mg Tahir Sabine for St Charan romo MD RN 13:05:13 Dilaudid I.V. 2 mg Tahir Sabine for [facility] Charan romo MD RN 13:09:50 Versed I.V. 2 mg Tahir Sabine for St Charan romo MD [employer] french teacher Log Time Note 12:15:46 Sabine Voss RN sent for patient. Start room use. 12:33:56 Time tracking: Regular hours (M-F 7:00 - 5:00) 12:34:00 Plan of Care:Hemodynamics will remain stable., Cardiac rhythm will remain stable., Comfort level will be maintained., Respiratory function will remain adequate., Patient/ family verbilizes understanding of procedure., Procedure tolerated without complication., Recovers from procedure without complications.. 12:34:05 Patient received from Pre/Post Procedure Room to CCL 3 Alert and oriented. Tansferred to table in Supine position. 12:34:08 Warm blankets applied, and reza hugger turned on for patient comfort. 12:34:08 Correct patient and procedure confirmed by team. 12:34:10 Signed procedure consent form obtained from patient. 12:34:10 ECG and BP/O2 sat monitors applied to patient. 12:40:02 Vital chart was started 12:40:48 [employer] medical device sales representative JEB SULLIVAN present for procedure. 12:41:46 YAYA EtCO2 d/t equipment malfunction 12:51:10 0.9% NaCl 100 ml/hr I.V. was administered by Sabine Voss RN; used for procedure; 12:51:18 Oxygen 2 l/min etCO2 Nasal cannula was administered by Sabine Voss RN; used for procedure; 12:51:30 Lidocaine 1% 20ml vial added to field was administered by Mark Schultz MD; for local anesthetic; 12:51:42 Ancef (1Gm/50ml NS) 1 g I.V.P.B was administered by Sabine Voss RN; Per physician; 12:51:52 Ancef Irrigation (1gm/500ml NS) 1 g Topical was administered by Mark Schultz MD; used for procedure; 12:52:01 Baseline sample Acquired. 12:52:05 Zofran 4 mg I.V. was administered by Sabine Voss RN; for nausea; 12:52:06 Rhythm: sinus rhythm 12:52:07 Full Disclosure recording started 12:52:17 H&P Date Dictated: 08/24/2018 Within 30 days and on chart., H&P Addendum completed by physician on day of procedure. (MUST COMPLETE FOR ALL OUTPATIENTS). 12:52:19 Pre-procedure instructions explained to patient. 12:52:19 Pre-op teaching completed and patient verbalized understanding. 12:52:20 Family in patients room. 12:52:22 Patient NPO since Midnight. 12:52:23 Is the patient allergic to Iodine/contrast media? No. 12:52:24 Is patient on blood thinner?No 12:52:26 Patient diabetic? No. 12:52:28 Previous problem with sedation/anesthesia? No ? 12:52:29 Snore? Yes 12:52:31 Sleep apnea? Yes 12:52:32 Deviated septum? No 12:52:33 Opens mouth fully? Yes 12:52:34 Sticks out tongue? Yes 12:52:38 Airway obstruction? Yes COPD 12:52:41 Dentures? Yes OUT 12:53:01 Patient pain scale 0/10 ?. 12:53:06 IV patent on arrival in left forearm with 0.9% NaCl at [facility]. 12:53:08 Lab results completed and on chart. 12:53:14 Left chest area was prepped with dura-prep and draped in sterile fashion 12:53:16 Alarms reviewed by R. N. 12:53:16 Sharps counted by scrub and verified by R.N. 12:53: --------ALL STOP TIME OUT------ :: Final Timeout: patient, procedure, and site verified with staff and physician. All members of the team are in agreement. 12:53:26 Left chest site verified by team. 12:53:31 Fire Safety Assessment: A--An alcohol-based skin anteseptic being used preoperatively., B--The operative or invasive procedure is being performed above the xiphoid process or in the oropharynx. 12:53:34 Physical assessment completed. ASA score P 2 - A patient with mild systemic disease as per Tahir Arce MD. 12:53:38 Sedation plan: IV Moderate Sedation Medication:Versed, Dilaudid 12:54:04 Pre sharps counted by scrub and verified by RN: Sutures: 7; Sponges: 5; Stick needles: 2; Skin needles: 2; Blade: 1; Cautery: 1 12:54:08 Grounding pad site Left thigh. 12:54:10 Grounding pad site free from injury. 12:54:42 Versed 2 mg I.V. was administered by Sabine Voss RN; for sedation; 12:54:54 Dilaudid 1 mg I.V. was administered by Sabine Voss RN; for sedation; 12:55:05 Use device set RISHABH PPM 12:55:08 Immobilizer Large opened to sterile field. 12:55:09 Mepilex Dressing (103319) opened to sterile field. 12:55:10 Cautery Pushbutton Pencil opened to sterile field. 12:55:11 Cautery Tip Research Statistician opened to sterile field. 12:55:11 5-0 Monocryl PS2 [id number] opened to sterile field. 12:55:12 3-0 Vicryl Single Pack [id number] opened to sterile field. 12:55:12 2-0 Ticron Multipack ([id number]) opened to sterile field. 12:55:24 Medtronic 4574-45 PPM Lead opened to sterile field. 12:55:30 Medtronic 4074-52 PPM Lead opened to sterile field. 12:55:37 Medtronic Advisa MRI PPM Dual Generator [id number] opened to sterile field. 12:55:47 Procedure started. 12:55:52 Lidocaine 1% was administered to left subclavicular area by Mark Schultz MD . 12:56:36 Incision made to left subclavicular area. 12:58:37 Generator pocket made/opened. 12:59:45 Versed 2 mg I.V. was administered by Sabine Voss RN; for sedation; 12:59:49 Dilaudid 1 mg I.V. was administered by Sabine Voss RN; for sedation; 13:03:28 Left subclavian vein accessed with 7Fr Peel Away Sheath. 13:03:38 Ventricular lead inserted and advanced. 13:03:41 Left subclavian vein accessed with 7Fr Peel Away Sheath. 13:03:47 Atrial lead inserted and advanced. 13:04:06 Versed 2 mg I.V. was administered by Sabine Voss RN; for sedation; 13:05:13 Dilaudid 2 mg I.V. was administered by Sabine Voss RN; for sedation; 13:06:34 Ventricular lead positioned. 13:09:50 Versed 2 mg I.V. was administered by Sabine Voss RN; for sedation; 13:15:17 Ventricular lead tested. 13:17:08 Atrial lead positioned. 13:17:50 Atrial lead tested. 13:19:16 Peel-a-way sheath was split and removed. 13:19:17 Peel-a-way sheath was split and removed. 13:19:36 Atrial lead attachment was completed with 2-0 ticron. 13:19:44 Ventricular lead attachment was completed with 2-0 ticron. 13:20:10 PPM Dual was attached to lead(s) and inserted into pocket. 13:20:39 Device pocket was irrigated with Ancef. 13:21:27 Generator was sutured in place with 2-0 ticron. 13:22:13 Parameters-- Generator: Mode: DDDR. Lower Rate: 60bpm. Upper Rate: 120bpm. 13:22:42 Parameters--Ventricular P/R Wave: 6.6mV. Current: 0.1mA; Threshold: 0.3V; Impedence: 1489OHMS. 13:22:59 Parameters--Atrial P/R Wave: 4.2mV. Current: 25mA; Threshold: 0.2V; Impedence: 528OHMS. 13:23:58 Subcutaneous closure was completed with 3-0 vicryl. 13:24:52 Skin closure was completed with 5-0 monocryl. 13:27:38 Lt Chest incision was dressed with Mepilex dressing. 13:29:24 Procedure ended.(Physican Out) 13:29:42 Fluoroscopy time 07.10 minutes. 13:29:49 Fluoroscopy dose: 289 mGy 13:29:49 Flurop Dose total: 289 13:29:56 Sharps counted by scrub and verified by R.N. 13:31:20 Insertion/operative site no bleeding no hematoma. 13:31:27 Post-op/insertion site Left Chest area dressed using a Mepilex dressing. 13:31:28 Post Procedure Pulses reassessed and unchanged 13:31:31 Post-procedure physical assessment completed. ASA score P 2 - A patient with mild systemic disease as per Tahir Arce MD. 13:31:34 Post procedure rhythm: unchanged. 13:31:41 Estimated blood loss: 5 ml 13:31:42 Post procedure instruction explained to patient.Patient verbalizes understanding. 13:31:43 Patient needs reinforcement of post procedure teaching. 13:31:55 Procedure and supply charges have been captured, reviewed, submitted and are correct. 13:31:58 Procedure Complication : No complications 13:32:39 Vital chart was stopped 13:32:39 See physician's report for complete and final results. 13:32:42 Report given to PCU. 13:32:44 Patient transfered to PCU with Bed. 13:32:46 Procedure ended. 13:32:46 Full Disclosure recording stopped 13:32:52 End room use (Document Last) Device Usage Item Name Manufacture Quantity Catalog Hospital Part Current Minimal Lot# / Number Charge Number Stock Stock Serial# Code Immobilizer Cardinal 1 [id number] 5 Large Health Mepilex Cardinal 1 [id number] 210661 347372 [id number] 5 [facility] (724100) Cautery Microtek 1 [id number] 158621 10507 [id number] 5 [employer] Pencil Cautery Tip Microtek 1 [id number] 981883 957263 276153 5 Research Statistician [employer] 5-0 Monocryl Ethicon 1 Y495G 624672 599545 613987 5 PS2 Y495G 3-0 Vicryl Ethicon 1 [id number] 275078 183843 5 Single Pack [id number] 2-0 Ticron Ethicon 1 [id number] 537525 15992 177481 5 Multipack ([id number]) Medtronic Medtronic 1 [id number] 545121 203109 471204 5 [id number] 45 PPM EXP Lead 01-17-20 Medtronic Medtronic 1 40752 713282 461760 656705 5 [id number] 52 PPM EXP 01-11-20 Lead Medtronic Medtronic 1 [id number] [id number] 679066 640608 5 [id number] Advisa MRI EXP PPM Dual 01-18-2020 Generator [id number] Signature Audit [place] Stage Time Signature Unsigned Intra-Procedure 08/30/2018 Tyree Jones 1:34:31 PM RT(R) Signatures Monitor : Tyree Jones RT Signature : Date : Time : [place] [id number] [place] [address]
[~2018-08-30 10:51] MED LIST changes: +ALBUTEROL SULF8.5 GM INH; +ANORO ELLIPTA1 EACH INH; +IBUPROFEN800 MG PO; +MUCINEX600 MG PO; +OMNICEF300 MG PO; +PHENOBARBITAL30 MG PO; +ZANAFLEX4 MG PO; +ZITHROMAX500 MG PO
[2018-08-30] MEDS ORDERED: DILANTIN100 MG PO (11:12)
[2018-08-30 11:29] VITALS: BP 124/60; BMI 27.8
[2018-08-30 11:33] LABS: BASOPHILS 0.3 % (0-2); HEMOGLOBIN 13.4 g/dL (13.5-17.5); IMMATURE GRANULOCYTES 0.1 % (0-5); LYMPHOCYTES 28.5 % (15-50); MCH 32.9 pg (26.0-34.0); MCHC 34.4 g/dL (31.0-37.0); MCV 95.8 fL (80.0-100.0); MEAN PLATELET VOLUME 9.4 fL (7.4-10.4); MONOCYTES 8.4 % (2-11); NEUTROPHILS 60.7 % (40-80); PLATELET COUNT 221 10x3/uL (130-400); RBC 4.07 10x6/uL (4.20-6.10); RDW 14.1 % (11.5-14.5); WBC 7.4 10x3/uL (4.8-10.8)
[2018-08-30 11:43] LABS: APTT 27.3 SECONDS (22.8-39.4); INR 0.97 (0.85-1.17); PROTIME 12.4 SECONDS (11.6-15.0)
[2018-08-30 11:45] LABS: CALC OSMOLALITY 278 mosm/kg (275-300); CALCIUM 8.7 mg/dL (8.5-10.1); CARBON DIOXIDE 30.9 mmol/L (21.0-32.0); CHLORIDE - SERUM 102 mmol/L (98-107); CREATININE - SERUM 0.9 mg/dL (0.6-1.3); GLUCOSE 97 mg/dL (74-106); POTASSIUM - SERUM 3.9 mmol/L (3.5-5.1); SODIUM 139 mmol/L (136-145); UREA NITROGEN 14 mg/dL (7-18); eGFR NON AFRICAN AMERICAN > 90 mL/min (90-120)
--- NOTE | 2018-08-30 14:02 | NUR ---
RECIVED FROM SKI TOW OPERATOR PER BED. DRSG TO LT SHOULDER C/D/I. ADMIT ASSESSMENT PER RN
[2018-08-30 14:37] VITALS: BP 133/71; Ht 182.9 cm; Wt 93.2 kg
[2018-08-30 15:24] VITALS: BP 120/86
--- NOTE | 2018-08-30 17:06 | NUR ---
WITHOUT CHANGES OR DISTRESS NOTED AT THIS TIME, DENIES NEEDS.
--- NOTE | 2018-08-30 19:16 | NUR ---
EVENING ROUNDS MADE. PT SITTING UP IN BED RESTING. L ARM IN SLING. DENIES PAIN AT THIS TIME. DENIES FURTHER CONCERNS. FAMILY AT BEDSIDE. BED LOWERED AND LOCKED. CL IN REACH. WILL CTM.
[2018-08-30 20:00] VITALS: BP 127/58
--- NOTE | 2018-08-30 22:31 | NUR ---
PT VITALS STABLE. PT TOOK MEDS WITHOUT DIFFICULTY. NO FURTHER CONCERNS AT THIS TIME. BED LOWERED AND LOCKED. CL IN REACH. WILL CTM.
[2018-08-31 00:15] VITALS: BP 130/68
[2018-08-31 04:30] VITALS: BP 127/74
--- NOTE | 2018-08-31 04:44 | NUR ---
I have reviewed this patient and I concur with the Shift Assessment completed by the Licensed Practical Nurse today this shift.
[2018-08-31 06:19] LABS: BASOPHILS 0.4 % (0-2); EOSINOPHILS 1.9 % (0-7); HEMATOCRIT 40.2 % (42.0-54.0); HEMOGLOBIN 13.5 g/dL (13.5-17.5); MCH 32.8 pg (26.0-34.0); MCHC 33.6 g/dL (31.0-37.0); MEAN PLATELET VOLUME 9.9 fL (7.4-10.4); MONOCYTES 5.6 % (2-11); NEUTROPHILS 65.1 % (40-80); PLATELET COUNT 220 10x3/uL (130-400); RBC 4.11 10x6/uL (4.20-6.10); RDW 14.2 % (11.5-14.5); WBC 7.4 10x3/uL (4.8-10.8)
[2018-08-31 06:37] LABS: MCV 97.8 fL (80.0-100.0)
[2018-08-31 06:43] LABS: ALBUMIN 3.3 g/dL (3.4-5.0); ALKALINE PHOSPHATASE 110 U/L (46-116); ALT (SGPT) 34 U/L (10-68); BILIRUBIN - TOTAL 0.27 mg/dL (0.2-1.3); CALC OSMOLALITY 278 mosm/kg (275-300); CALCIUM 8.6 mg/dL (8.5-10.1); CHLORIDE - SERUM 103 mmol/L (98-107); GLUCOSE 92 mg/dL (74-106); POTASSIUM - SERUM 4.3 mmol/L (3.5-5.1); PROTEIN - SERUM 6.7 g/dL (6.4-8.2); SODIUM 140 mmol/L (136-145); UREA NITROGEN 12 mg/dL (7-18); eGFR NON AFRICAN AMERICAN 81 mL/min (90-120)
--- NOTE | 2018-08-31 07:40 | NUR ---
PT SITTING ON SIDE OF BED, SHIFT ASSESSMENT PERFORMED, DENIES ANY NEEDS AT THIS TIME, WILL CONT TO FOLLOW POC
[2018-08-31 08:12] VITALS: BP 140/59
[2018-08-31 11:02] VITALS: BP 126/66
--- NOTE | 2018-08-31 11:55 | NUR ---
DISCHARGE INSTRUCTIONS REVIEWED WITH PT AND ALL QUESTIONS ANSWERED. PIV REMOVED WITH CATHETER TIP INTACT. TELEMETRY REMOVED AND GIVEN TO CAR CLEANING SUPERVISOR JUDY. ASSISTED PT TO FRONT OF HOSPITAL VIA WHEELCHAIR WHERE HE LEFT WITH FAMILY.
--- NOTE | 2018-09-03 14:16 | OP ---
PATIENT NAME: SALVATORE COPELAND MEDICAL RECORD: [id number] :59 LOCATION:D.CAT ADMISSION DATE: SURGEON: NHI MADRIGAL MD DATE OF OPERATION: 08/30/2018 PROCEDURE: Permanent pacemaker placement. INDICATION: Sick sinus syndrome with pauses, greater than 3 seconds. SURGEON: Mark Schultz MD DESCRIPTION OF PROCEDURE: After left subclavian was cannulated via modified Seldinger technique via Dr. Schultz, first, under fluoroscopic guidance, I placed the RV lead in the RV apex without difficulty. After adequate R waves and thresholds were obtained, again under fluoroscopic guidance, I placed the right atrial lead in the right atrial appendage without any difficulty. After adequate P waves and thresholds were obtained, the leads were attached to appropriate poles of the generator and the pocket was closed via Dr. Schultz. IMPRESSION: Successful lead portion of permanent pacemaker placement on Salvatore Copeland. ESTIMATED BLOOD LOSS: Minimal. DISPOSITION: To the floor, stable. TRANSINT:[id number] Voice Confirmation ID: [id number] DOCUMENT ID: [id number] NHI MADRIGAL MD at 1416 CC: [id number] DICTATION DATE: 08/30/18 1328 SCRAP DROP CRANE OPERATOR: 08/30/[address] [facility] CLI 08/31/18 [place] [id number] [place] [address]
== END 2018-08-31 12:17 | disposition home or self-care (01) ==
LOC: D.CATH 10:51 → D.M2 13:59 → D.CATH 08-31 12:17
PROVIDERS: Family Medicine; Internal Medicine Cardiovascular Disease; ATTEND Internal Medicine Interventional Cardiology
DX: I49.5 Sick sinus syndrome (principal); J44.9 Chronic obstructive pulmonary disease, unspecified; I25.10 Atherosclerotic heart disease of native coronary artery without angina pectoris; I25.2 Old myocardial infarction; Z01.812 Encounter for preprocedural laboratory examination

== ENCOUNTER 2019-03-26 11:35 | Emergency (ER) | payer MEDICARE ==
[~2019-03-26] VITALS: Ht 182.9 cm; Wt 97.3 kg
[2019-03-26 11:43] VITALS: Ht 182.9 cm; Wt 97.3 kg
[2019-03-26] MEDS ORDERED: TALWIN NX1 TAB PO (12:37)
[2019-03-26] MEDS ORDERED: BACLOFEN20 M1 PO (12:37)
[2019-03-26 12:55] VITALS: BP 135/65
== END 2019-03-26 12:55 | disposition home or self-care (01) ==
LOC: D.ER 11:35
DX: M25.552 Pain in left hip (principal); G89.29 Other chronic pain; Z76.5 Malingerer [conscious simulation]; I25.2 Old myocardial infarction; J44.9 Chronic obstructive pulmonary disease, unspecified; K21.9 Gastro-esophageal reflux disease without esophagitis; M54.9 Dorsalgia, unspecified